=== PATIENT | female | born 1965 | race Caucasian/White ===

== ENCOUNTER 2017-08-23 18:35 | Emergency (ER) | payer MEDICAID ==
[~2017-08-23] VITALS: Ht 154.9 cm; Wt 81.0 kg
[~2017-08-23 18:35] MED LIST: ALBU8HFA IH; INSLAN SQ; METF500T7 PO
[2017-08-23 19:18] LABS: GLUCOSE,POINT OF CARE 335 MG/DL (70-110)
[2017-08-23 20:47] VITALS: BP 131/67
== END 2017-08-23 20:51 | disposition home or self-care (01) ==
LOC: EMS 18:36
DX: M79.645 Pain in left finger(s) (principal); J45.909 Unspecified asthma, uncomplicated; E11.9 Type 2 diabetes mellitus without complications; R03.0 Elevated blood-pressure reading, without diagnosis of hypertension; Z79.4 Long term (current) use of insulin; W18.39XA Other fall on same level, initial encounter; Y93.89 Activity, other specified; Y92.89 Other specified places as the place of occurrence of the external cause; Y99.8 Other external cause status
CPT/HCPCS: 82962; 99284

== ENCOUNTER 2017-10-29 01:46 | Emergency (ER) | payer MEDICAID ==
[~2017-10-29] VITALS: Ht 162.6 cm; Wt 72.7 kg
[2017-10-29 01:51] VITALS: BP 124/73
[2017-10-29] MEDS ORDERED: ASPI-556 PO (01:55)
[2017-10-29] MEDS ORDERED: PIOG15TA6 PO (01:55)
[2017-10-29 02:04] LABS: GLUCOSE,POINT OF CARE 346 MG/DL (70-110)
[2017-10-29 02:29] LABS: APPEARANCE,URINE CLEAR (CLEAR); BILIRUBIN,URINE NEGATIVE (NEGATIVE); GLUCOSE, URINE (UA) >=1000 mg/dL (NEGATIVE); KETONES,URINE NEGATIVE (NEGATIVE); LEUKOCYTE ESTERASE ,URINE NEGATIVE (NEGATIVE); NITRATE,URINE NEGATIVE (NEGATIVE); OCCULT BLOOD,URINE NEGATIVE (NEGATIVE); PH,URINE 5.5 (5.0-8.0); PROTEIN,URINE NEGATIVE (NEGATIVE)
[2017-10-29 02:45] LABS: BACTERIA,URINE Rare /HPF (None Seen); RBC,URINE 0-2 /HPF (0-2); SQUAMOUS EPITHELIAL CELL,UR Few /LPF (None Seen); WBC,URINE 0-2 /HPF (0-5)
[2017-10-29] MEDS ORDERED: HYDROCODONE/ACETAMINOPHEN 5-325 MG TABLET PO ONE (03:00)
== END 2017-10-29 04:06 | disposition home or self-care (01) ==
LOC: EMS 01:46
DX: M25.552 Pain in left hip (principal); M54.5 Low back pain; E11.9 Type 2 diabetes mellitus without complications; J45.909 Unspecified asthma, uncomplicated
CPT/HCPCS: 73503; 99285

== ENCOUNTER 2020-04-08 17:52 | Emergency (ER) | payer MEDICAID ==
[~2020-04-08] VITALS: Ht 154.9 cm; Wt 73.6 kg
[~2020-04-08 17:52] MED LIST changes: +ASPI-556 PO; -INSLAN SQ; +METF-911 PO; -METF500T7 PO; +PIOG15TA6 PO
[2020-04-08 21:14] LABS: GLUCOSE,POINT OF CARE 267 MG/DL (70-110)
[2020-04-08] MEDS ORDERED: PROPARACAINE HCL 0.5% 15 ML OPHTHALMIC SOLUTION OU ONE (21:15)
[2020-04-08] MEDS ORDERED: FLUORESCEIN SODIUM 1 MG STRIP OD ONE (22:15)
[2020-04-08] MEDS ORDERED: FLUORESCEIN SODIUM 1 MG STRIP ONE (22:29)
[2020-04-08 22:30] VITALS: BP 121/66
[2020-04-08] MEDS ORDERED: POLYMYXIN B/TRIMETHOPRIM 10 ML OPHTHALMIC SOLUTION OD ONE (23:00)
== END 2020-04-09 00:22 | disposition home or self-care (01) ==
LOC: EMS 17:52
DX: H10.89 Other conjunctivitis (principal); J45.909 Unspecified asthma, uncomplicated; I10 Essential (primary) hypertension; Z79.899 Other long term (current) drug therapy; Z79.82 Long term (current) use of aspirin

== ENCOUNTER 2023-09-19 19:19 | Emergency (ER) | payer MEDICAID, OTHER ==
[~2023-09-19] VITALS: Ht 154.9 cm; Wt 72.7 kg
[~2023-09-19 19:19] MED LIST changes: +ALBU18HF12 IH; -ALBU8HFA IH; +METF-81 PO; -METF-911 PO
[2023-09-19 19:33] VITALS: TEMP 98
[2023-09-19 19:57] VITALS: PULSE 93; RESP 18; O2SAT 98
[2023-09-19] MEDS: ALBUTEROL SULFATE 2.5 MG/0.5 ML NEB SOLUTION NEB ONE (19:57)
[2023-09-19] MEDS: IPRATROPIUM BROMIDE 0.5 MG/2.5 ML NEB SOLUTION NEB ONE (19:57)
[2023-09-19 19:59] VITALS: PULSE 93; RESP 18; O2SAT 98
[2023-09-19] MEDS: ALBUTEROL SULFATE HFA 90 MCG/PUFF 8 GM INHALER IH ONE (20:08)
[2023-09-19] MEDS: PredniSONE 20 MG TABLET PO ONE (20:08)
[2023-09-19 20:12] VITALS: PULSE 97; RESP 18; O2SAT 100
[2023-09-19 20:15] VITALS: PULSE 97; RESP 18; O2SAT 100
[2023-09-19 20:19] LABS: BASOPHILS % (AUTO) 0.4 % (0.0-2.0); EOSINOPHILS % (AUTO) 3.3 % (1.0-6.0); HEMATOCRIT 35.6 % (36-46); HEMOGLOBIN 12.3 g/dL (12.0-16.0); LYMPHOCYTES # (AUTO) 1.9 K/uL (1.0-4.8); LYMPHOCYTES % (AUTO) 39.6 % (22.0-44.0); MEAN CORPUSCULAR HEMOGLOBIN 31.5 pg (26.0-34.0); MEAN CORPUSCULAR HGB CONC 34.4 G/dL (31.0-37.0); MEAN CORPUSCULAR VOLUME 92 fL (80-100); MONOCYTES # (AUTO) 0.4 K/uL (0.1-1.0); NEUTROPHILS # (AUTO) 2.3 K/uL (1.8-7.7); NEUTROPHILS % (AUTO) 48.7 % (40.0-70.0); PLATELET COUNT (AUTO) 209 K/uL (150-450); RED BLOOD CELL COUNT(AUTO) 3.88 MIL/uL (4.00-5.20); WHITE BLOOD COUNT (AUTO) 4.8 K/uL (4.5-11.0)
[2023-09-19 20:30] LABS: ANION GAP 6 mmol/L (8-16); CALCIUM, TOTAL 10.8 mg/dL (8.8-10.5); CARBON DIOXIDE 30 mmol/L (22-29); CHLORIDE 94 mmol/L (98-107); CREATININE 0.86 mg/dL (0.60-1.30); GLOMERULAR FILTR. RATE CALC > 60 mL/min (>60); POTASSIUM 4.4 mmol/L (3.5-5.1); SODIUM SERUM 130 mmol/L (136-145); UREA NITROGEN, BLOOD 18 mg/dL (7-18)
[2023-09-19 20:36] LABS: TROPONIN I-HIGH SENSITIVITY 11 ng/L (<51)
[2023-09-19 20:42] LABS: GLUCOSE,RANDOM 465 mg/dL (70-110)
[2023-09-19] MEDS: SODIUM CHLORIDE 0.9% 1,000 ML IV ONE (21:05)
[2023-09-19] MEDS: INSULIN REGULAR, HUMAN 100 UNITS/ML IVP ONE ×2 (21:06→22:22)
[2023-09-19 22:21] LABS: GLUCOMETER DEV NAME(LOC) ERT.5; GLUCOSE,POINT OF CARE 305 MG/DL (70-110)
[2023-09-19] MEDS ORDERED: INSLAN SQ (22:29)
[2023-09-19] MEDS ORDERED: METF-81 PO (22:29)
[2023-09-19 22:35] VITALS: BP 132/74; PULSE 85; RESP 16
[2023-09-19] MEDS ORDERED: PRED-554 PO (22:44)
== END 2023-09-19 23:29 | disposition home or self-care (01) ==
LOC: EMS 19:19
DX: J45.909 Unspecified asthma, uncomplicated (principal); E11.65 Type 2 diabetes mellitus with hyperglycemia; Z90.49 Acquired absence of other specified parts of digestive tract; Z98.890 Other specified postprocedural states
CPT/HCPCS: 99285; 96374; 71045; 96361; 80048; 82962; 83880; 84484; 85025; 36415; 94640; 93005; 96376; J1815; J7512; J7030; J3535; J7613

== ENCOUNTER 2023-10-23 20:56 | Emergency (ER) | payer OTHER ==
[~2023-10-23] VITALS: Ht 154.9 cm; Wt 75.9 kg
[~2023-10-23 20:56] MED LIST changes: +INSLAN SQ; +PRED-554 PO
[2023-10-23 21:05] VITALS: TEMP 97.8
[2023-10-23 22:36] VITALS: BP 144/80; PULSE 68; RESP 16
[2023-10-23] MEDS: SODIUM CHLORIDE 0.9% 1,000 ML IV ONE (22:43)
[2023-10-23] MEDS: COLCHICINE 0.6 MG TABLET PO ONE (22:44)
[2023-10-23] MEDS: MethylPREDNISolone SOD SUCC 125 MG/2 ML VIAL IVP ONE (22:44)
[2023-10-23 22:49] LABS: BASOPHILS % (AUTO) 0.4 % (0.0-2.0); EOSINOPHILS % (AUTO) 3.2 % (1.0-6.0); HEMATOCRIT 31.2 % (36-46); HEMOGLOBIN 10.7 g/dL (12.0-16.0); LYMPHOCYTES # (AUTO) 3.1 K/uL (1.0-4.8); MEAN CORPUSCULAR HEMOGLOBIN 31.8 pg (26.0-34.0); MEAN CORPUSCULAR HGB CONC 34.5 G/dL (31.0-37.0); MEAN CORPUSCULAR VOLUME 92 fL (80-100); MONOCYTES # (AUTO) 0.4 K/uL (0.1-1.0); MONOCYTES % (AUTO) 6.9 % (2.0-9.0); NEUTROPHILS # (AUTO) 2.7 K/uL (1.8-7.7); NEUTROPHILS % (AUTO) 41.5 % (40.0-70.0); PLATELET COUNT (AUTO) 257 K/uL (150-450); RED BLOOD CELL COUNT(AUTO) 3.38 MIL/uL (4.00-5.20); RED CELL DISTRIBUTION WIDTH 13.3 % (11.5-14.5); WHITE BLOOD COUNT (AUTO) 6.4 K/uL (4.5-11.0)
[2023-10-23 22:58] LABS: ANION GAP 6 mmol/L (8-16); CALCIUM, TOTAL 10.1 mg/dL (8.8-10.5); CARBON DIOXIDE 30 mmol/L (22-29); CHLORIDE 104 mmol/L (98-107); CREATININE 0.53 mg/dL (0.60-1.30); GLOMERULAR FILTR. RATE CALC > 60 mL/min (>60); GLUCOSE,RANDOM 116 mg/dL (70-110); POTASSIUM 3.9 mmol/L (3.5-5.1); SODIUM SERUM 140 mmol/L (136-145); UREA NITROGEN, BLOOD 13 mg/dL (7-18)
[2023-10-23 23:07] LABS: LACTIC ACID 0.8 mmol/L (0.4-2.0)
[2023-10-24] MEDS ORDERED: CEPH-558 PO (01:01)
[2023-10-24] MEDS: COLCHICINE 0.6 MG TABLET PO ONE (01:09)
== END 2023-10-24 01:21 | disposition home or self-care (01) ==
LOC: EMS 20:56
DX: M10.9 Gout, unspecified (principal); E11.9 Type 2 diabetes mellitus without complications; J45.909 Unspecified asthma, uncomplicated; Z90.49 Acquired absence of other specified parts of digestive tract; Z98.890 Other specified postprocedural states
CPT/HCPCS: 99284; 96374; 96361; 80048; 83605; 85025; 87040; 36415; 73630; J2919; J7030

== ENCOUNTER → 2024-01-01 | Emergency (ER) | payer OTHER ==
[~2024-01-01] VITALS: Ht 154.9 cm; Wt 79.1 kg
[~2024-01-01] MED LIST changes: +CEPH-558 PO; +METF-1211 PO; +SEMA1PEN3 SQ
[2024-01-01 09:49] VITALS: TEMP 98.7
[2024-01-01 10:05] LABS: GLUCOMETER DEV NAME(LOC) ER.7; GLUCOSE,POINT OF CARE 148 MG/DL (70-110)
[2024-01-01] MEDS: PROCHLORPERAZINE EDISYLATE 5 MG/ML 2 ML VIAL IVP ONE (12:09)
[2024-01-01] MEDS: DiphenhydrAMINE HCL 50 MG/ML VIAL IVP ONE (12:09)
[2024-01-01] MEDS: SODIUM CHLORIDE 0.9% 1,000 ML IV ONE (12:09)
[2024-01-01] MEDS: KETOROLAC TROMETHAMINE 30 MG/ML VIAL IVP ONE (12:10)
[2024-01-01 14:16] VITALS: BP 132/84; PULSE 75; RESP 18; O2SAT 100
== END | disposition still patient (30) ==
LOC: EMS 09:38
DX: G43.909 Migraine, unspecified, not intractable, without status migrainosus (principal); J45.909 Unspecified asthma, uncomplicated; E11.9 Type 2 diabetes mellitus without complications; Z79.4 Long term (current) use of insulin
CPT/HCPCS: 99284; 96374; 96375; 96361; 82962; J1200; J1885; J0780; J7030

== ENCOUNTER 2024-10-21 11:23 | Emergency (ER) | payer OTHER ==
[~2024-10-21] VITALS: Ht 154.9 cm; Wt 75.0 kg
[~2024-10-21 11:23] MED LIST changes: -ASPI-556 PO; -CEPH-558 PO; -METF-81 PO; -PIOG15TA6 PO; -PRED-554 PO
[2024-10-21 11:32] VITALS: TEMP 97.7
[2024-10-21] MEDS ORDERED: BECL10.62 IH (11:42)
[2024-10-21] MEDS ORDERED: METF-446 PO (11:42)
[2024-10-21] MEDS ORDERED: FERR325T23 PO (11:42)
[2024-10-21] MEDS ORDERED: SEMA0.258 SQ (11:42)
[2024-10-21] MEDS ORDERED: DAPA10TA PO (11:42)
[2024-10-21] MEDS ORDERED: PROP10DR15 OU (11:42)
[2024-10-21] MEDS ORDERED: EZET10TA57 PO (11:42)
[2024-10-21] MEDS ORDERED: ATOR40TA71 PO (11:42)
[2024-10-21] MEDS ORDERED: GABA-1181 PO (11:42)
[2024-10-21] MEDS: LIDOCAINE 5% TRANSDERMAL PATCH TD ONE (11:46)
[2024-10-21] MEDS: KETOROLAC TROMETHAMINE 30 MG/ML VIAL IM ONE (11:47)
[2024-10-21] MEDS ORDERED: IBUP-1506 PO (15:14)
[2024-10-21] MEDS ORDERED: BACL5TAB PO (15:14)
[2024-10-21 15:15] VITALS: BP 96/63; PULSE 74; RESP 18; O2SAT 96
== END 2024-10-21 15:40 | disposition home or self-care (01) ==
LOC: EMS 11:24
DX: S46.911A Strain of unspecified muscle, fascia and tendon at shoulder and upper arm level, right arm, initial encounter (principal); E11.9 Type 2 diabetes mellitus without complications; J45.909 Unspecified asthma, uncomplicated; Z98.890 Other specified postprocedural states; Z79.85 Long-term (current) use of injectable non-insulin antidiabetic drugs; Z79.51 Long term (current) use of inhaled steroids; Z79.4 Long term (current) use of insulin; Z79.899 Other long term (current) drug therapy; X58.XXXA Exposure to other specified factors, initial encounter; Y93.89 Activity, other specified; Y92.89 Other specified places as the place of occurrence of the external cause; Y99.8 Other external cause status
CPT/HCPCS: 99283; 82962; 73030; 96372; J1885

== ENCOUNTER 2024-12-14 15:59 | Emergency (ER) | payer OTHER ==
[~2024-12-14] VITALS: Ht 162.6 cm; Wt 75.0 kg
[~2024-12-14 15:59] MED LIST changes: +ATOR40TA71 PO; +BACL5TAB PO; +BECL10.62 IH; +DAPA10TA PO; +EZET10TA57 PO; +FERR325T23 PO; +GABA-1181 PO; +IBUP-1506 PO; -METF-1211 PO; +METF-446 PO; +PROP10DR15 OU; +SEMA0.258 SQ; -SEMA1PEN3 SQ
[2024-12-14 16:02] VITALS: TEMP 98.2
[2024-12-14 16:14] VITALS: BP 122/74; PULSE 94; RESP 16; O2SAT 99
[2024-12-14 16:20] LABS: GLUCOMETER DEV NAME(LOC) ER.7; GLUCOSE,POINT OF CARE 205 MG/DL (70-110)
[2024-12-14] MEDS: DOXYCYCLINE HYCLATE 100 MG TABLET PO ONE (17:42)
[2024-12-14] MEDS: IBUPROFEN 400 MG TABLET PO ONE (17:42)
[2024-12-14] MEDS ORDERED: DOXY-354 PO (18:02)
== END 2024-12-14 18:34 | disposition home or self-care (01) ==
LOC: EMS 15:59
DX: N76.2 Acute vulvitis (principal); E11.9 Type 2 diabetes mellitus without complications; J45.909 Unspecified asthma, uncomplicated; Z79.85 Long-term (current) use of injectable non-insulin antidiabetic drugs; Z79.51 Long term (current) use of inhaled steroids; Z79.4 Long term (current) use of insulin; Z79.899 Other long term (current) drug therapy
CPT/HCPCS: 82962; 99283

== ENCOUNTER 2025-02-08 16:55 | Emergency (ER) | payer OTHER ==
[~2025-02-08] VITALS: Ht 157.5 cm; Wt 77.3 kg
[~2025-02-08 16:55] MED LIST changes: +DOXY-354 PO
[2025-02-08 17:40] VITALS: BP 130/73; PULSE 93; RESP 18; TEMP 98.8; O2SAT 99
[2025-02-08 18:07] LABS: COVID AG,FIA SOURCE NASAL SWAB
[2025-02-08 18:15] LABS: RAPID GROUP A STREP NEGATIVE (NEGATIVE)
[2025-02-08 18:24] LABS: INFLUENZA TYPE A NEGATIVE FOR TYPE A (NEGATIVE); INFLUENZA TYPE B NEGATIVE FOR TYPE B (NEGATIVE); SARS-COV2 (COVID) ANTIGEN,FIA Negative (Negative)
[2025-02-08] MEDS ORDERED: ONDANSETRON 4 MG TABLET PO ONE (19:45)
[2025-02-08] MEDS ORDERED: BENZ-227 PO (20:59)
== END 2025-02-08 22:03 | disposition home or self-care (01) ==
LOC: EMS 17:10
DX: J06.9 Acute upper respiratory infection, unspecified (principal); B97.89 Other viral agents as the cause of diseases classified elsewhere; J45.909 Unspecified asthma, uncomplicated; E11.9 Type 2 diabetes mellitus without complications; R11.2 Nausea with vomiting, unspecified; J02.9 Acute pharyngitis, unspecified; R50.9 Fever, unspecified; R09.81 Nasal congestion; Z79.899 Other long term (current) drug therapy; Z98.890 Other specified postprocedural states; Z20.822 Contact with and (suspected) exposure to COVID-19
CPT/HCPCS: 71045; 82962; 87430; 87804; 99284